=== PATIENT | male | born 1980 | race African-American/Black ===

== ENCOUNTER 2019-02-10 08:55 | Inpatient (IN) | payer OTHER ==
[~2019-02-10] VITALS: Ht 165.1 cm; Wt 141.0 kg
[~2019-02-10 08:55] MED LIST: AMLO-512 PO; CARV12 PO; FURO40 PO; LISI-662 PO; SODIUM CHLORIDE 0.9% 1,000 ML IV ONE
[2019-02-10] MEDS ORDERED: SODIUM CHLORIDE 0.9% 1,000 ML IV ONE (09:00)
[2019-02-10 10:08] LABS: BASOPHILS % (AUTO) 0.2 % (0.0-2.0); EOSINOPHILS % (AUTO) 2.4 % (1.0-6.0); HEMATOCRIT 42.8 % (41-53); HEMOGLOBIN 14.2 g/dL (13.5-17.5); LYMPHOCYTES # (AUTO) 2.4 K/uL (1.0-4.8); LYMPHOCYTES % (AUTO) 30.2 % (22.0-44.0); MEAN CORPUSCULAR HEMOGLOBIN 28.5 pg (26.0-34.0); MEAN CORPUSCULAR HGB CONC 33.2 G/dL (31.0-37.0); MEAN CORPUSCULAR VOLUME 86 fL (80-100); MONOCYTES # (AUTO) 0.6 K/uL (0.1-1.0); MONOCYTES % (AUTO) 7.1 % (2.0-9.0); NEUTROPHILS # (AUTO) 4.9 K/uL (1.8-7.7); NEUTROPHILS % (AUTO) 60.1 % (40.0-70.0); PLATELET COUNT (AUTO) 253 K/uL (150-450); RED BLOOD CELL COUNT(AUTO) 4.99 MIL/uL (4.50-5.90); RED CELL DISTRIBUTION WIDTH 14.6 % (11.5-14.5)
[2019-02-10] MEDS ORDERED: LIDOCAINE/PF 1% 30 ML VIAL ONE ×2 (10:17→10:35)
[2019-02-10] MEDS ORDERED: SODIUM BICARBONATE 50 MEQ/50 ML VIAL ONE (10:17)
[2019-02-10 10:19] LABS: PROTHROMBIN TIME 10.1 SEC (9.4-11.6)
[2019-02-10 10:30] LABS: ALANINE AMINOTRANSFERASE 45 U/L (12-78); ALBUMIN 3.6 g/dL (3.4-5.0); ALKALINE PHOSPHATASE 85 U/L (46-116); ANION GAP 7 mmol/L (8-16); ASPARTATE AMINOTRANSFERASE 22 U/L (15-37); BILIRUBIN,TOTAL 0.4 mg/dL (0.1-1.0); CALCIUM, TOTAL 9.7 mg/dL (8.8-10.5); CARBON DIOXIDE 36 mmol/L (22-29); CHLORIDE 96 mmol/L (98-107); CREATININE 1.37 mg/dL (0.60-1.30); GLOMERULAR FILTR. RATE CALC > 60 mL/min (>60); GLUCOSE,RANDOM 111 mg/dL (70-110); SODIUM SERUM 139 mmol/L (136-145); TOTAL PROTEIN, SERUM 8.2 g/dL (6.4-8.2); UREA NITROGEN, BLOOD 25 mg/dL (7-18)
[2019-02-10 10:34] LABS: POTASSIUM 2.8 mmol/L (3.5-5.1)
[2019-02-10] MEDS ORDERED: POTASSIUM CHL 10 MEQ/WATER 50 ML IV PRN (12:00)
[2019-02-10] MEDS ORDERED: HYDR25TA PO (12:10)
[2019-02-10] MEDS ORDERED: SPIR50 PO (12:10)
[2019-02-10] MEDS ORDERED: HYDR25TA84 PO (12:10)
[2019-02-10] MEDS ORDERED: BUME1TAB17 PO (12:10)
[2019-02-10 12:30] VITALS: BP 139/95
[2019-02-10] MEDS: POTASSIUM CHL 10 MEQ/WATER 50 ML IV PRN ×4 (13:16→16:45)
[2019-02-10] MEDS ORDERED: PNEUMOCOCCAL VACCINE POLYVALENT 0.5 ML VIAL [PPSV23] IM ONE (14:00)
[2019-02-10 16:05] VITALS: BP 141/88
[2019-02-10] MEDS: HydrALAZINE HCL 25 MG TABLET PO SCH ×2 (16:46→20:03)
[2019-02-10] MEDS: POTASSIUM CHLORIDE 20 MEQ ER TABLET PO PRN (20:00)
[2019-02-10] MEDS: CARVEDILOL 12.5 MG TABLET PO SCH (20:04)
[2019-02-10] MEDS ORDERED: CARVEDILOL 12.5 MG TABLET PO SCH (21:00)
[2019-02-10 21:10] VITALS: BP 111/70
[2019-02-11] VITALS (19 sets, daily range): BP systolic 126–186; BP diastolic 0–109
[2019-02-11] MEDS: POTASSIUM CHLORIDE 20 MEQ ER TABLET PO PRN ×2 (01:25→07:14)
[2019-02-11 06:36] LABS: BASOPHILS % (AUTO) 0.3 % (0.0-2.0); EOSINOPHILS % (AUTO) 3.2 % (1.0-6.0); HEMATOCRIT 40.1 % (41-53); HEMOGLOBIN 13.2 g/dL (13.5-17.5); LYMPHOCYTES # (AUTO) 2.6 K/uL (1.0-4.8); LYMPHOCYTES % (AUTO) 33.8 % (22.0-44.0); MEAN CORPUSCULAR VOLUME 85 fL (80-100); MONOCYTES # (AUTO) 0.7 K/uL (0.1-1.0); MONOCYTES % (AUTO) 9.5 % (2.0-9.0); NEUTROPHILS # (AUTO) 4.2 K/uL (1.8-7.7); NEUTROPHILS % (AUTO) 53.2 % (40.0-70.0); PLATELET COUNT (AUTO) 229 K/uL (150-450); RED BLOOD CELL COUNT(AUTO) 4.72 MIL/uL (4.50-5.90); RED CELL DISTRIBUTION WIDTH 14.8 % (11.5-14.5)
[2019-02-11 06:56] LABS: ANION GAP 6 mmol/L (8-16); CALCIUM, TOTAL 9.6 mg/dL (8.8-10.5); CARBON DIOXIDE 32 mmol/L (22-29); CHLORIDE 101 mmol/L (98-107); CREATININE 1.31 mg/dL (0.60-1.30); GLOMERULAR FILTR. RATE CALC > 60 mL/min (>60); GLUCOSE,RANDOM 110 mg/dL (70-110); POTASSIUM 3.1 mmol/L (3.5-5.1); SODIUM SERUM 139 mmol/L (136-145); UREA NITROGEN, BLOOD 26 mg/dL (7-18)
[2019-02-11] MEDS: BUMETANIDE 1 MG TABLET PO SCH (09:00)
[2019-02-11] MEDS: HYDROCHLOROTHIAZIDE 25 MG TABLET PO SCH (09:00)
[2019-02-11] MEDS ORDERED: SPIRONOLACTONE 50 MG TABLET PO SCH (09:00)
[2019-02-11] MEDS ORDERED: HYDROCHLOROTHIAZIDE 25 MG TABLET PO SCH (09:00)
[2019-02-11] MEDS: CARVEDILOL 12.5 MG TABLET PO SCH ×2 (09:00→20:12)
[2019-02-11] MEDS ORDERED: HydrALAZINE HCL 25 MG TABLET PO SCH (09:00)
[2019-02-11] MEDS: HydrALAZINE HCL 25 MG TABLET PO SCH ×3 (09:00→20:12)
[2019-02-11] MEDS: SPIRONOLACTONE 50 MG TABLET PO SCH (09:00)
[2019-02-11] MEDS ORDERED: BUMETANIDE 1 MG TABLET PO SCH (09:00)
[2019-02-11] MEDS ORDERED: PROPOFOL 1000 MG/ISO-OSM 100 ML IV ONE (13:37)
[2019-02-11] MEDS ORDERED: LIDOCAINE 2% 5 ML JELLY ONE (13:39)
[2019-02-11] MEDS ORDERED: SODIUM BICARBONATE 50 MEQ/50 ML VIAL ONE (14:05)
[2019-02-11] MEDS ORDERED: LIDOCAINE/PF 1% 30 ML VIAL ONE ×3 (14:05→15:01)
[2019-02-11] MEDS ORDERED: LIDOCAINE 1% 30 ML/SOD BICARB 8.4% 4 ML SQ ONE (14:30)
[2019-02-11] MEDS ORDERED: BUPIVACAINE LIPOSOME/PF 1.3%-13.3MG/ML SUSPENSION 10 ML VIAL INJ ONE (14:30)
[2019-02-11] MEDS ORDERED: IOHEXOL 300 MG/ML 50 ML VIAL ONE (14:41)
[2019-02-11] MEDS ORDERED: ACETAMINOPHEN 325 MG TABLET PO PRN (16:30)
[2019-02-11] MEDS: HYDROCODONE/ACETAMINOPHEN 5-325 MG TABLET PO PRN (20:13)
[2019-02-11] MEDS: CeFAZolin 1 GM/DEXTROSE 50 ML IV SCH (20:13)
[2019-02-12 00:16] VITALS: BP 134/78
[2019-02-12] MEDS: CeFAZolin 1 GM/DEXTROSE 50 ML IV SCH ×2 (03:00→08:53)
[2019-02-12 04:45] VITALS: BP 133/90
[2019-02-12] MEDS: HYDROCODONE/ACETAMINOPHEN 5-325 MG TABLET PO PRN (04:45)
[2019-02-12] MEDS ORDERED: LIDOCAINE/PF 2% 5 ML VIAL IM ONE (05:56)
[2019-02-12 07:45] VITALS: BP 138/105
[2019-02-12] MEDS: CARVEDILOL 12.5 MG TABLET PO SCH (09:07)
[2019-02-12] MEDS: HYDROCHLOROTHIAZIDE 25 MG TABLET PO SCH (09:07)
[2019-02-12] MEDS: HydrALAZINE HCL 25 MG TABLET PO SCH ×2 (09:07→16:09)
[2019-02-12] MEDS: SPIRONOLACTONE 50 MG TABLET PO SCH (09:07)
[2019-02-12] MEDS: BUMETANIDE 1 MG TABLET PO SCH (09:07)
[2019-02-12 11:51] VITALS: BP 133/90
[2019-02-12 15:44] VITALS: BP 139/86
[2019-02-12] MEDS ORDERED: POTA20TA82 PO (16:38)
[2019-02-12 17:03] LABS: ANION GAP 6 mmol/L (8-16); CALCIUM, TOTAL 9.5 mg/dL (8.8-10.5); CARBON DIOXIDE 32 mmol/L (22-29); CHLORIDE 97 mmol/L (98-107); CREATININE 1.21 mg/dL (0.60-1.30); GLOMERULAR FILTR. RATE CALC > 60 mL/min (>60); GLUCOSE,RANDOM 97 mg/dL (70-110); POTASSIUM 3.1 mmol/L (3.5-5.1); SODIUM SERUM 135 mmol/L (136-145); UREA NITROGEN, BLOOD 17 mg/dL (7-18)
[2019-02-12] MEDS ORDERED: POTASSIUM CHLORIDE 20 MEQ ER TABLET PO ONE (17:30)
== END 2019-02-12 18:45 | disposition home or self-care (01) | DRG 161 ==
LOC: 5S 08:55
PROVIDERS: ADMIT Internal Medicine Clinical Cardiac Electrophysiology; ATTEND Internal Medicine Clinical Cardiac Electrophysiology
PROC: 0JH608Z Insertion of Defibrillator Generator into Chest Subcutaneous Tissue and Fascia, Open Approach (ICD-10-PCS; principal; 2019-02-11)
PROC: 02H63KZ Insertion of Defibrillator Lead into Right Atrium, Percutaneous Approach (ICD-10-PCS; 2019-02-11)
PROC: 02HK3KZ Insertion of Defibrillator Lead into Right Ventricle, Percutaneous Approach (ICD-10-PCS; 2019-02-11)
PROC: 4B02XTZ Measurement of Cardiac Defibrillator, External Approach (ICD-10-PCS; 2019-02-12)
DX: I11.0 Hypertensive heart disease with heart failure (principal); E78.5 Hyperlipidemia, unspecified; E87.6 Hypokalemia; G47.30 Sleep apnea, unspecified; I50.22 Chronic systolic (congestive) heart failure
CPT/HCPCS: 33249; 36005; 76000; 83735; 84132; 87081; 93005; G0378; J0690; J2704; J3480; J3490; J7030; Q9967